=== PATIENT | male | born 1985 | race Two or more races ===

== ENCOUNTER 2023-11-29 18:48 | Inpatient (IN) | payer MEDICAID, OTHER ==
[~2023-11-29] VITALS: Ht 170.2 cm; Wt 90.0 kg
[2023-11-29 20:10] LABS: Urine Bacteria None Seen /hpf (None Seen)
[2023-11-29 20:19] LABS: Basophils # (auto) 0 10 ^3/uL (0-0.2); Basophils % (auto) 0.5 % (0.0-2.0); Eosinophils # (auto) 0.1 10 ^3/uL (0-0.8); Eosinophils % (auto) 1.2 % (0.0-7.0); Hematocrit 37.7 % (41.0-53.0); Lymphocytes # (auto) 3.5 10 ^3/uL (0.4-5.4); Lymphocytes % (auto) 38.6 % (10.0-50.0); Mean Corpuscular Hemoglobin 30.6 pg (28.0-32.0); Mean Corpuscular Hgb Conc. 34.6 g/dL (32.0-36.0); Mean Corpuscular Volume 88.5 fL (80.0-100.0); Monocytes # (auto) 0.4 10 ^3/uL (0-1.3); Monocytes % (auto) 4.4 % (0.0-12.0); Neutrophils % (auto) 55.3 % (37.0-80.0); Nucleated Red Blood Cells % 0.1 %; Red Blood Cells 4.26 10^6/uL (4.5-5.90); Red Cell Distribution Width 13.3 % (11.8-14.3); White Blood Cell 9.1 10^3/uL (4.4-10.8)
[2023-11-29 20:33] LABS: Urine Blood 1+ /uL (Negative); Urine Clarity Clear (Clear); Urine Color Light-Yellow (Yellow); Urine Hyaline Cast FEW /lpf (0 - 2); Urine Mucus FEW (None Seen); Urine Protein, UAD TRACE (Negative); Urine Specific Gravity 1.027 (1.001-1.035); Urine Urobilinogen Normal (Negative); Urine WBC <1 /hpf (0 - 3); Urine pH 5.5 (5.0-9.0)
[2023-11-29 20:47] LABS: Alanine Aminotransferase 56 U/L (7-40); Albumin 4.7 g/dL (3.2-4.8); Alkaline Phosphatase 67 U/L (46-116); Anion Gap 12 (5-15); Aspartate Aminotransferase 24 U/L (13-40); BUN/Creatinine Ratio 25.5 (10.0-20.0); Bilirubin, Total 0.4 mg/dL (0.2-1.0); Blood Urea Nitrogen 26 mg/dL (9-23); Carbon Dioxide 22 mmol/L (20-30); Chloride 108 mmol/L (98-107); Glucose 90 mg/dL (74-106); Potassium 3.8 mmol/L (3.5-5.1); Sodium 142 mmol/L (136-145); Total Protein 7.5 g/dL (5.7-8.2)
[2023-11-29] MEDS ORDERED: ONDANSETRON HCL 4 MG/2 ML VIAL IV PRN (21:30)
[2023-11-29] MEDS: SODIUM CHLORIDE 0.9% 1,000 ML IVB ONE (22:46)
[2023-11-29] MEDS: PANTOPRAZOLE 40 MG/10 ML VIAL INJ IV ONE (22:46)
[2023-11-29 23:18] VITALS: PULSE 70; RESP 16; O2SAT 100
[2023-11-30] VITALS (8 sets, daily range): BP systolic 126–135; BP diastolic 69–90; PULSE 50–71; RESP 17–21; TEMP 97.8–99.1; O2SAT 98–100
[2023-11-30 05:25] LABS: Chloride 111 mmol/L (98-107); Potassium 3.7 mmol/L (3.5-5.1); Sodium 139 mmol/L (136-145)
[2023-11-30 05:26] LABS: Anion Gap 10 (5-15); Carbon Dioxide 18 mmol/L (20-30)
[2023-11-30 05:27] LABS: Calcium 8.9 mg/dL (8.7-10.4)
[2023-11-30 05:31] LABS: Glucose 92 mg/dL (74-106)
[2023-11-30 05:32] LABS: BUN/Creatinine Ratio 16.3 (10.0-20.0); Blood Urea Nitrogen 13 mg/dL (9-23)
[2023-11-30] MEDS: PANTOPRAZOLE 40 MG/10 ML VIAL INJ IV SCH (09:14)
[2023-11-30 11:14] LABS: Basophils # (auto) 0 10 ^3/uL (0-0.2); Basophils % (auto) 0.5 % (0.0-2.0); Eosinophils # (auto) 0.1 10 ^3/uL (0-0.8); Eosinophils % (auto) 1.8 % (0.0-7.0); Hematocrit 33.7 % (41.0-53.0); Hemoglobin 11.5 g/dL (13.5-17.5); Lymphocytes # (auto) 2.3 10 ^3/uL (0.4-5.4); Lymphocytes % (auto) 33.3 % (10.0-50.0); Mean Corpuscular Hemoglobin 30.7 pg (28.0-32.0); Mean Corpuscular Hgb Conc. 34.2 g/dL (32.0-36.0); Monocytes # (auto) 0.3 10 ^3/uL (0-1.3); Monocytes % (auto) 4.6 % (0.0-12.0); Neutrophils # (auto) 4.2 10 ^3/uL (1.6-8.6); Neutrophils % (auto) 59.8 % (37.0-80.0); Nucleated Red Blood Cells % 0.1 %; Red Blood Cells 3.75 10^6/uL (4.5-5.90); Red Cell Distribution Width 13.1 % (11.8-14.3)
[2023-11-30 13:12] LABS: INR 1.08 (0.9-1.15); Prothrombin Time 11.4 sec (9.3-11.8)
[2023-12-01] VITALS (7 sets, daily range): BP systolic 124–140; BP diastolic 75–87; PULSE 56–68; RESP 17–20; TEMP 97.9–98.2; O2SAT 97–100
[2023-12-01 06:13] LABS: Basophils # (auto) 0 10 ^3/uL (0-0.2); Basophils % (auto) 0.4 % (0.0-2.0); Eosinophils # (auto) 0.2 10 ^3/uL (0-0.8); Eosinophils % (auto) 2.5 % (0.0-7.0); Hematocrit 38.2 % (41.0-53.0); Hemoglobin 13.2 g/dL (13.5-17.5); Lymphocytes # (auto) 3.4 10 ^3/uL (0.4-5.4); Mean Corpuscular Hgb Conc. 34.7 g/dL (32.0-36.0); Mean Corpuscular Volume 89.5 fL (80.0-100.0); Monocytes # (auto) 0.3 10 ^3/uL (0-1.3); Monocytes % (auto) 3.7 % (0.0-12.0); Neutrophils # (auto) 4.2 10 ^3/uL (1.6-8.6); Neutrophils % (auto) 51.4 % (37.0-80.0); Nucleated Red Blood Cells % 0.2 %; Red Blood Cells 4.27 10^6/uL (4.5-5.90); Red Cell Distribution Width 13.5 % (11.8-14.3); White Blood Cell 8.1 10^3/uL (4.4-10.8)
[2023-12-01 06:28] LABS: Alanine Aminotransferase 66 U/L (7-40); Albumin 4.8 g/dL (3.2-4.8); Alkaline Phosphatase 69 U/L (46-116); Anion Gap 10 (5-15); Aspartate Aminotransferase 28 U/L (13-40); BUN/Creatinine Ratio 10.6 (10.0-20.0); Blood Urea Nitrogen 11 mg/dL (9-23); Calcium 9.8 mg/dL (8.7-10.4); Carbon Dioxide 25 mmol/L (20-30); Chloride 105 mmol/L (98-107); Glucose 93 mg/dL (74-106); Potassium 3.2 mmol/L (3.5-5.1); Sodium 140 mmol/L (136-145)
[2023-12-01 06:29] LABS: Bilirubin, Total 0.8 mg/dL (0.2-1.0)
[2023-12-01] MEDS ORDERED: NALOXONE HCL 0.4 MG/ML VIAL ONE (09:31)
[2023-12-01] MEDS ORDERED: FLUMAZENIL 0.1 MG/ML INJ 10ML MDV IV ONE (09:31)
[2023-12-01] MEDS ORDERED: LIDOCAINE VISCOUS 2% 15ML UD ONE (09:31)
[2023-12-01] MEDS ORDERED: SODIUM CHLORIDE LOCK 10 ML ONE (09:31)
[2023-12-01] MEDS ORDERED: MIDAZOLAM HCL 5 MG/ML-1ML VIAL ONE (09:32)
[2023-12-01] MEDS ORDERED: diphenhdrAMINE HCL 50 MG/1 ML VL ONE (09:32)
[2023-12-01] MEDS ORDERED: fentaNYL CITRATE 100 MCG/2 ML VL ONE ×2 (09:32→12:12)
[2023-12-01] MEDS ORDERED: MIDAZOLAM HCL 2MG/2ML 2ml VIAL (1mg/ml) ONE (12:12)
[2023-12-01] MEDS ORDERED: PROPOFOL 10 MG/ML 20 ML IV ONE (12:38)
[2023-12-01] MEDS ORDERED: LIDOCAINE 2% (LOCAL ANESTH.) PF 5ml SDV ONE (12:38)
[2023-12-01] MEDS ORDERED: PANT40T PO (13:53)
[2023-12-01] MEDS ORDERED: SUCR1TAB PO (13:53)
[2023-12-01] MEDS ORDERED: ONDANSETRON HCL 4 MG/2 ML VIAL IV ONE (14:30)
[2023-12-01] MEDS: POTASSIUM CHL 20 Meq TABLET PO ONE (16:26)
[2023-12-01] MEDS ORDERED: SUCRALFATE 1 GM/10 ML ORAL SUSP GT SCH (22:00)
== END 2023-12-01 17:33 | disposition home or self-care (01) | DRG 241 ==
LOC: ER 18:48 → WEST WING 21:28 → OVERFLOW 21:28 → WEST WING 11-30 03:45
PROVIDERS: ADMIT Internal Medicine; ATTEND Internal Medicine
PROC: 0DB68ZX Excision of Stomach, Via Natural or Artificial Opening Endoscopic, Diagnostic (ICD-10-PCS; 2023-12-01)
PROC: 0DB48ZX Excision of Esophagogastric Junction, Via Natural or Artificial Opening Endoscopic, Diagnostic (ICD-10-PCS; 2023-12-01)
PROC: 0DB98ZX Excision of Duodenum, Via Natural or Artificial Opening Endoscopic, Diagnostic (ICD-10-PCS; principal; 2023-12-01 12:06)
DX: K25.4 Chronic or unspecified gastric ulcer with hemorrhage (principal); K22.11 Ulcer of esophagus with bleeding; K29.91 Gastroduodenitis, unspecified, with bleeding; D64.9 Anemia, unspecified; E87.6 Hypokalemia; N20.0 Calculus of kidney; K44.9 Diaphragmatic hernia without obstruction or gangrene
CPT/HCPCS: 36415; 74176; 80048; 80053; 81001; 82270; 85025; 85610; 86850; 86900; 86901; 96361; 96374; G0378; J2001; J2250; J2405; J2470; J2704